=== PATIENT | female | born 1975 | race Two or more races ===

== ENCOUNTER → 2018-06-20 | Emergency (ER) | payer OTHER ==
[~2018-06-20] VITALS: Ht 177.8 cm; Wt 95.3 kg
[~2018-06-20] MED LIST: ATENOLOL100 MG; KETO10TA2 PO; METHOTREXATE2.5 MG PO; MILLIPRED5 MG PO; MOTRIN800 MG PO; MUCINEX DM ER1 EAC1 PO; OSEL75CA PO; SYMBICORT 16010.2 GM IH; ULTRACET PO
== END | disposition home or self-care (01) ==
LOC: ER 11:02
DX: J11.1 Influenza due to unidentified influenza virus with other respiratory manifestations (principal); J98.01 Acute bronchospasm

== ENCOUNTER 2019-08-09 12:34 | Emergency (ER) | payer OTHER ==
[~2019-08-09] VITALS: Ht 177.8 cm; Wt 95.3 kg
[2019-08-09] MEDS ORDERED: RAYOS1 MG (13:28)
== END 2019-08-09 18:31 | disposition home or self-care (01) ==
LOC: ER 12:34
DX: J06.9 Acute upper respiratory infection, unspecified (principal)

== ENCOUNTER 2024-06-14 21:09 | Emergency (ER) | payer OTHER ==
[~2024-06-14] VITALS: Ht 177.8 cm; Wt 99.8 kg
[~2024-06-14 21:09] MED LIST changes: +RAYOS1 MG
[2024-06-14] MEDS ORDERED: RINVOQ45 MG PO (21:34)
[2024-06-14] MEDS ORDERED: CARVEDILOL6.25 MG (21:36)
[2024-06-14] MEDS ORDERED: COZAAR50 MG PO (21:36)
[2024-06-15] MEDS ORDERED: KETOROLAC TROMETHAMINE 60 MG VIAL IM STA (05:26)
[2024-06-15] MEDS ORDERED: DEXAMETHASONE SODIUM PHOSPHATE 4 MG/ML VIAL IM STA (05:26)
== END 2024-06-15 05:41 | disposition home or self-care (01) ==
LOC: ER 21:11
DX: M25.521 Pain in right elbow (principal)